=== PATIENT | male | born 1995 | race Caucasian/White ===

== ENCOUNTER 2021-12-04 13:12 | Emergency (ER) | payer OTHER ==
[~2021-12-04] VITALS: Ht 188 cm; Wt 95.5 kg
[2021-12-04 16:21] LABS: GC DNA AMPLIFICATION NEGATIVE (NEGATIVE)
[2021-12-04] MEDS ORDERED: CIPR-249 PO (17:03)
[2021-12-04 17:31] VITALS: BP 128/68
== END 2021-12-04 17:52 | disposition home or self-care (01) ==
LOC: M ED 13:12
DX: N39.0 Urinary tract infection, site not specified (principal); M54.50 Low back pain, unspecified

== ENCOUNTER 2021-12-06 17:11 | Emergency (ER) | payer OTHER ==
[~2021-12-06] VITALS: Ht 188 cm; Wt 98.2 kg
[~2021-12-06 17:11] MED LIST: CIPR-249 PO
[2021-12-06] MEDS ORDERED: MORPHINE 4 MG/ML 1ML VIAL/SYRINGE (J2270) IV ONE (17:50)
[2021-12-06] MEDS ORDERED: NS 1,000 ML IV ONE (17:50)
[2021-12-06] MEDS ORDERED: ONDANSETRON 4MG/2ML VIAL IV ONE (17:50)
[2021-12-06 18:13] LABS: BASO % 0.3 % (0.0-1.0); EOS # 0.1 10^3/uL (0.0-0.5); EOS % 0.6 % (0.0-3.0); HEMATOCRIT 43.4 % (42.0-52.0); HEMOGLOBIN 14.6 g/dl (13.5-17.5); LYMPH # 1.5 10^3/uL (1.5-5.0); LYMPH % 14.2 % (24.0-44.0); MEAN CORPUSCULAR HGB CONC 33.6 g/dl (32.0-36.5); MEAN CORPUSCULAR VOLUME 92.1 fl (80.0-96.0); MONO # 1.1 10^3/uL (0.0-0.8); NEUTROPHILS # 8.1 10^3/uL (1.5-8.5); NEUTROPHILS % 74.6 % (36.0-66.0); PLATELET COUNT, AUTOMATED 197 10^3/uL (150-450); RED BLOOD COUNT 4.71 10^6/uL (4.30-6.10); WHITE BLOOD COUNT 10.8 10^3/uL (4.0-10.0)
[2021-12-06 18:35] LABS: ALT/SGPT 50 U/L (12-78); BILIRUBIN,DIRECT 0.3 MG/DL (0.0-0.2); BILIRUBIN,TOTAL 1.2 MG/DL (0.2-1.0); BLOOD UREA NITROGEN 13 MG/DL (7-18); CALCIUM LEVEL 9.3 MG/DL (8.5-10.1); CARBON DIOXIDE LEVEL 30 MEQ/L (21-32); CHLORIDE LEVEL 103 MEQ/L (98-107); GLOMERULAR FILTRATION RATE > 60.0 (>60); GLUCOSE, FASTING 97 MG/DL (70-100); POTASSIUM SERUM 4.1 MEQ/L (3.5-5.1); SODIUM LEVEL 137 MEQ/L (136-145); TOTAL PROTEIN 7.8 GM/DL (6.4-8.2)
[2021-12-06] MEDS ORDERED: ISOVUE-370 76% 100ML VIAL As Ordered ONE (18:45)
[2021-12-06] MEDS ORDERED: cefTRIAXone SOD 1 GM in D5W MINI-BAG PLUS 50 ML IV ONE (20:05)
[2021-12-06] MEDS ORDERED: KETOROLAC 30 MG/ML 1ML VIAL IV ONE (20:15)
[2021-12-06] MEDS ORDERED: DOXY-443 PO (20:42)
[2021-12-06 20:55] LABS: APPEARANCE, URINE CLEAR (CLEAR); BACTERIA, URINE AUTO NEGATIVE (NEGATIVE); BILIRUBIN, URINE AUTO NEGATIVE (NEGATIVE); BLOOD, URINE BLOOD NEGATIVE (NEGATIVE); COLOR, URINE STRAW (YELLOW); GLUCOSE, URINE (UA) AUTO NEGATIVE (NEGATIVE); KETONE, URINE AUTO NEGATIVE (NEGATIVE); LEUKOCYTE ESTERASE, URINE AUTO 2+ (NEGATIVE); NITRITE, URINE AUTO NEGATIVE (NEGATIVE); PROTEIN, URINE AUTO NEGATIVE (NEGATIVE); RBC, URINE AUTO 1 /HPF (0-3); SQUAMOUS EPITHELIAL CELL UR AU 0 /HPF (0-6); UROBILINOGEN, URINE AUTO 0.2 mg/dL (0.0-2.0); WBC, URINE AUTO 17 /HPF (0-3)
[2021-12-06] MEDS ORDERED: KETO10TAB PO (21:00)
[2021-12-06 21:52] VITALS: BP 144/71
== END 2021-12-06 21:51 | disposition home or self-care (01) ==
LOC: M ED 17:11
DX: N45.1 Epididymitis (principal); N45.2 Orchitis; R16.1 Splenomegaly, not elsewhere classified
CPT/HCPCS: 36415; 74177; 76870; 80048; 80076; 81001; 85025; 93976; 96361; 96365; 96366; 96375; 99284; J0696; J1885; J2270; J2405; Q9967